=== PATIENT | male | born 1940 | race Caucasian/White ===

== ENCOUNTER 2021-02-27 12:48 | Day surgery (SDC) | payer MEDICARE ==
[~2021-02-27] VITALS: Ht 167.6 cm; Wt 63.6 kg
[2021-02-27] MEDS ORDERED: SILD50TA PO (13:24)
[2021-02-27] MEDS ORDERED: ATOR40TA78 PO (13:24)
[2021-02-27] MEDS ORDERED: TAMS-11 PO (13:24)
[2021-02-27] MEDS ORDERED: ASCO500T7 PO (13:24)
[2021-02-27] MEDS ORDERED: APIX5TAB PO (13:24)
[2021-02-27] MEDS ORDERED: AMLO-150 PO (13:24)
[2021-02-27] MEDS ORDERED: FINA5TAB4 PO (13:24)
[2021-02-27] MEDS ORDERED: PROP60TA PO (13:24)
[2021-02-27] MEDS ORDERED: OMEP40CA8 PO (13:24)
[2021-02-27] MEDS ORDERED: FLEC100T PO (13:24)
[2021-02-27] MEDS ORDERED: ASPI81TA45 PO (13:24)
[2021-02-27 13:30] VITALS: BP 130/81
[2021-02-27 13:47] LABS: BASOPHILS % (AUTO) 1 % (0-1); EOSINOPHILS % (AUTO) 2 % (1-7); LYMPHOCYTES % (AUTO) 19 % (22-44); MEAN CORPUSCULAR HEMOGLOBIN 33.4 pg (27.5-34.5); MEAN CORPUSCULAR HGB CONC 33.7 g/dL (33.2-36.2); MEAN PLATELET VOLUME 8.4 fL (7.4-10.4); MONOCYTES % (AUTO) 7 % (2-9); NEUTROPHILS % (AUTO) 72 % (42-75); PLATELET COUNT 203 x10^3/uL (130-400); RED BLOOD COUNT 4.24 x10^6/uL (4.38-5.82); RED CELL DISTRIBUTION WIDTH 13.8 % (9.4-14.8)
[2021-02-27 14:01] LABS: ANION GAP 7 mmol/L (5-15); CALCIUM 9.2 mg/dL (8.5-10.1); CHLORIDE 108 mmol/L (98-107); CREATININE 1.24 mg/dL (0.7-1.3)
[2021-02-27] MEDS ORDERED: PROPOFOL 10 MG/ML, 20ML ONE (14:54)
== END 2021-02-27 16:20 | disposition home or self-care (01) ==
LOC: OUT 12:48
PROVIDERS: ATTEND Internal Medicine Clinical Cardiac Electrophysiology
DX: I48.0 Paroxysmal atrial fibrillation (principal); I48.92 Unspecified atrial flutter; I08.0 Rheumatic disorders of both mitral and aortic valves; I10 Essential (primary) hypertension; E78.5 Hyperlipidemia, unspecified; N40.0 Benign prostatic hyperplasia without lower urinary tract symptoms; Z20.822 Contact with and (suspected) exposure to COVID-19; Z79.01 Long term (current) use of anticoagulants; Z79.82 Long term (current) use of aspirin; Z79.899 Other long term (current) drug therapy; Z87.891 Personal history of nicotine dependence; Z98.890 Other specified postprocedural states
CPT/HCPCS: 36415; 80048; 85025; 87635; 92960; 93005; 93312; 93321; 93325; J2704

== ENCOUNTER 2021-04-16 14:01 | Outpatient (CLI) | payer MEDICARE ==
[~2021-04-16 14:01] MED LIST: AMLO-150 PO; APIX5TAB PO; ASCO500T7 PO; ASPI81TA45 PO; ATOR40TA78 PO; FINA5TAB4 PO; FLEC100T PO; OMEP40CA8 PO; PROP60TA PO; SILD50TA PO; TAMS-11 PO
[2021-04-16] MEDS ORDERED: OMNIPAQUE 350 MG/ML, 150 ML BOTTLE ONE (15:17)
== END 2021-04-16 23:59 | disposition home or self-care (01) ==
LOC: CFH 14:01 → RAD 23:59
PROVIDERS: ATTEND Internal Medicine Cardiovascular Disease
DX: I48.91 Unspecified atrial fibrillation (principal); M47.814 Spondylosis without myelopathy or radiculopathy, thoracic region
CPT/HCPCS: 71046; 75572; 82565; Q9967; U0005; U0003

== ENCOUNTER 2021-04-18 06:32 | Observation (INO) | payer MEDICARE ==
[~2021-04-18] VITALS: Ht 167.6 cm; Wt 65.0 kg
[2021-04-18] MEDS ORDERED: SODIUM CHLORIDE 0.9% 1,000 ML IV SCH (07:00)
[2021-04-18] MEDS ORDERED: MULT-658 PO (07:03)
[2021-04-18] MEDS ORDERED: CALC-451 PO (07:03)
[2021-04-18 07:25] LABS: BASOPHILS % (AUTO) 1 % (0-1); EOSINOPHILS % (AUTO) 3 % (1-7); LYMPHOCYTES % (AUTO) 23 % (22-44); MEAN CORPUSCULAR HEMOGLOBIN 33.1 pg (27.5-34.5); MEAN CORPUSCULAR HGB CONC 33.5 g/dL (33.2-36.2); MEAN PLATELET VOLUME 8.3 fL (7.4-10.4); MONOCYTES % (AUTO) 9 % (2-9); NEUTROPHILS % (AUTO) 65 % (42-75); PLATELET COUNT 207 x10^3/uL (130-400); RED BLOOD COUNT 4.67 x10^6/uL (4.38-5.82); RED CELL DISTRIBUTION WIDTH 13.7 % (9.4-14.8)
[2021-04-18 07:35] LABS: ALANINE AMINOTRANSFERASE 28 U/L (12-78); ALBUMIN 3.6 g/dL (3.4-5.0); ANION GAP 7 mmol/L (5-15); CALCIUM 9.7 mg/dL (8.5-10.1); CHLORIDE 106 mmol/L (98-107); CREATININE 1.36 mg/dL (0.7-1.3)
[2021-04-18 07:38] LABS: ALKALINE PHOSPHATASE 92 U/L (45-117); BILIRUBIN,TOTAL 0.8 mg/dL (0.2-1.0); TOTAL PROTEIN 7.4 g/dL (6.4-8.2)
[2021-04-18] MEDS ORDERED: FENTANYL PF 250 MCG/5ML ONE (07:42)
[2021-04-18 07:53] LABS: PROTHROMBIN TIME 10.7 Seconds (9.6-11.5)
[2021-04-18] MEDS ORDERED: LIDOCAINE 2%, 20ML ONE (08:03)
[2021-04-18] MEDS ORDERED: HEPARIN 1,000 UNITS/ML, 10ML ONE ×3 (09:04→10:04)
[2021-04-18] MEDS ORDERED: ROCURONIUM 10MG/ML,5ML ONE (10:03)
[2021-04-18] MEDS ORDERED: PROPOFOL 10 MG/ML, 20ML ONE (10:03)
[2021-04-18] MEDS ORDERED: DEXAMETHASONE 4 MG/ML, 1ML ONE ×2 (10:03)
[2021-04-18] MEDS ORDERED: LABETALOL 5MG/ML, 20ML IV PRN (11:00)
[2021-04-18] MEDS ORDERED: ACETAMINOPHEN 325 MG TABLET PO PRN ×2 (11:00)
[2021-04-18] MEDS ORDERED: MIDAZOLAM 1 MG/ML, 2ML IV PRN (11:00)
[2021-04-18] MEDS ORDERED: HYDROmorphone 1 MG/ML, 1ML INJ IVPush PRN (11:00)
[2021-04-18] MEDS ORDERED: EPHEDRINE 50 MG/ML, 1ML IVPush PRN (11:00)
[2021-04-18] MEDS ORDERED: PROMETHAZINE 12.5 MG SUPP PR PRN (11:00)
[2021-04-18] MEDS ORDERED: hydrALAzine 20 MG/ML, 1ML IV PRN (11:00)
[2021-04-18] MEDS ORDERED: DIPHENHYDRAMINE 50 MG/ML, 1ML IVPush PRN ×2 (11:00)
[2021-04-18] MEDS ORDERED: PROMETHAZINE 25 MG/ML, 1ML IVPush PRN (11:00)
[2021-04-18] MEDS ORDERED: FENTANYL PF 100 MCG/2ML IV PRN (11:00)
[2021-04-18] MEDS ORDERED: OXYcodone 5 MG/5 ML ORAL.SOL UDC PO PRN (11:00)
[2021-04-18] MEDS ORDERED: ZOLPIDEM 5MG TABLET PO PRN (11:00)
[2021-04-18] MEDS ORDERED: APIXABAN 5 MG TABLET PO SCH (11:00)
[2021-04-18] MEDS ORDERED: ALBUTEROL SULFATE 2.5 MG/3 ML NPPB PRN (11:00)
[2021-04-18] MEDS ORDERED: LORazepam 2 MG/ML, 1ML IVPush PRN (11:00)
[2021-04-18] MEDS ORDERED: DIAZEPAM 5 MG/ML, 2ML IVPush PRN (11:00)
[2021-04-18] MEDS ORDERED: MEPERIDINE/PF 25MG/0.5ML IVPush PRN (11:00)
[2021-04-18] MEDS ORDERED: ONDANSETRON 2MG/ML, 2ML IVPush PRN ×2 (11:00)
[2021-04-18] MEDS ORDERED: APIXABAN 5 MG TABLET ONE (11:17)
[2021-04-18] MEDS: APIXABAN 5 MG TABLET PO SCH ×2 (11:18→20:16)
[2021-04-18] MEDS: AMLODIPINE 5 MG TABLET PO SCH (12:42)
[2021-04-18] MEDS: TAMSULOSIN 0.4 MG CAP.ER.24H PO SCH (12:42)
[2021-04-18] MEDS: ASPIRIN 81 MG TABLET EC PO SCH (12:43)
[2021-04-18] MEDS: FLECAINIDE 100MG TABLET PO SCH ×2 (12:43→20:15)
[2021-04-18] MEDS: ASCORBIC ACID 500 MG TABLET PO SCH (12:44)
[2021-04-18 14:00] VITALS: BP 117/62
[2021-04-18 20:03] VITALS: BP 137/89
[2021-04-18] MEDS: COLCHICINE 0.6 MG CAPSULE PO SCH (20:15)
[2021-04-18] MEDS ORDERED: ATORVASTATIN 40 MG TABLET PO SCH (21:00)
[2021-04-19 02:29] VITALS: BP 110/73
[2021-04-19] MEDS ORDERED: OMEPRAZOLE 20 MG CAPSULE.DR PO SCH (06:00)
[2021-04-19 08:42] VITALS: BP 129/82
[2021-04-19] MEDS ORDERED: CALCIUM/VITAMIN D3 250-125 TABLET PO SCH (09:00)
[2021-04-19] MEDS ORDERED: MULTIVITAMIN 1 TABLET PO SCH (09:00)
[2021-04-19] MEDS ORDERED: ACET325T26 PO (09:15)
[2021-04-19] MEDS ORDERED: COLC0.6C3 PO (09:15)
[2021-04-19] MEDS: ASPIRIN 81 MG TABLET EC PO SCH (10:02)
[2021-04-19] MEDS: COLCHICINE 0.6 MG CAPSULE PO SCH (10:02)
[2021-04-19] MEDS: TAMSULOSIN 0.4 MG CAP.ER.24H PO SCH (10:02)
[2021-04-19] MEDS: APIXABAN 5 MG TABLET PO SCH (10:02)
[2021-04-19] MEDS: ASCORBIC ACID 500 MG TABLET PO SCH (10:03)
[2021-04-19] MEDS: FLECAINIDE 100MG TABLET PO SCH (10:03)
[2021-04-19] MEDS: AMLODIPINE 5 MG TABLET PO SCH (10:04)
[2021-04-19] MEDS ORDERED: FINASTERIDE 5 MG TABLET PO SCH (13:00)
== END 2021-04-19 11:35 | disposition home or self-care (01) ==
LOC: CACL 06:32 → 5SO 11:54 → CACL 22:07 → 5SO 22:08
PROVIDERS: ADMIT Internal Medicine Cardiovascular Disease; ATTEND Internal Medicine Cardiovascular Disease
DX: I48.91 Unspecified atrial fibrillation (principal); Z20.822 Contact with and (suspected) exposure to COVID-19; I48.4 Atypical atrial flutter; D68.69 Other thrombophilia; I10 Essential (primary) hypertension; N40.0 Benign prostatic hyperplasia without lower urinary tract symptoms; E78.5 Hyperlipidemia, unspecified; Z79.01 Long term (current) use of anticoagulants; Z79.899 Other long term (current) drug therapy
CPT/HCPCS: 36415; 80053; 85025; 85347; 85610; 85730; 93306; 93312; 93321; 93325; 93613; 93655; 93656; 93657; 93662; C1730; C1732; C1759; C1766; C1893; C1894; G0378; J1100; J1644; J2704; J3010; J3490; U0005; U0003